=== PATIENT | male | born 1955 | race Caucasian/White ===

== ENCOUNTER → 2017-02-10 | Outpatient (CLI) | payer OTHER | LOC: FIMAGING 15:29 | PROVIDERS: ATTEND Nurse Practitioner Adult Health | DX: S82.102K Unspecified fracture of upper end of left tibia, subsequent encounter for closed fracture with nonunion (principal); M17.12 Unilateral primary osteoarthritis, left knee ==

== ENCOUNTER 2017-09-03 13:18 | Emergency (ER) | payer OTHER ==
--- NOTE | 2017-09-03 14:01 | EDPHY ---
H & P Time Seen by Provider: 09/03/17 13:59 HPI/ROS: CHIEF COMPLAINT: Left wrist injury HISTORY OF PRESENT ILLNESS: 61-year-old [id number] male sustained accidental fall on outstretched left hand when he was hiking this morning. No paresthesia. No head injury. No proximal pain or injury. PHYSICAL EXAM (Prior to examination, patient consented to physical exam, hands were washed and my usual and customary physical exam procedures followed) 1) GENERAL: Well-developed, well-nourished, alert and oriented. Appears to be in no acute distress. 2) HEAD: Normocephalic 3) HEENT: Pupils equal, round, reactive to light bilaterally. 4) LUNGS: Breathing comfortably. 5) MUSCULOSKELETAL: Dorsal deformity noted. Intact skin Soft compartments. Normal coloration. 6) SKIN: Intact no tenting normal coloration 7) VASCULAR: pulses and cap refill present are brisk 8) NEUROLOGIC: Radial, ulnar, median nerve function intact with no deficits appreciated on exam DIFFERENTIAL DIAGNOSIS: in no particular order including but not limited to fracture, sprain, compartment syndrome Procedure: Fracture reduction Indication: Fracture of the distal radius Indications, risks and benefits discussed with patient and consent obtained. A hematoma block of 0.5% bupivicaine placed by myself. Traction and countertraction applied achieving a visible and palpable reduction. The area was splinted with a sugar-tong Orthoglass splint. After application of the splint I returned and re-examined the patient. The splint was adequately immobilizing the joint and distal to the splint the patient's circulation and sensation were intact. Patient shows no signs of compartment syndrome. Was given orthopedic precautions. Constitutional: Initial Vital Signs Temperature (C) 36.8 C 09/03/17 14:11 Heart Rate 74 09/03/17 14:11 Respiratory Rate 16 09/03/17 14:11 Blood Pressure 141/87 H 09/03/17 14:11 O2 Sat (%) 96 09/03/17 14:11 O2 Delivery Mode Room Air Allergies/Adverse Reactions: No Known Allergies Allergy (Unverified 07/07/13 21:15) Home Medications: Medication Instructions Recorded Diltiazem 09/03/17 Hydrocodone/APAP 5/325 [[place] 1 tab PO Q6 PRN #7 tab 09/03/17 5/325 (RX)] MDM/Departure - MDM Imaging Results: Imaging Impressions Wrist X-Ray 09/03/17 13:43 Impression: 1. Dorsally angulated Colles' fracture. 2. Equivocal unicortical navicular fracture. If confirmation is important, then consider noncontrast CT. Wrist X-Ray 09/03/17 14:34 Impression: Incomplete reduction of the dorsally angulated comminuted distal radial fracture. Images reviewed by myself ED Course/Re-evaluation: Re-evaluation with serial exams. He is neurovascularly intact. Stressed the importance of follow-up with orthopedics and provided him this follow-up information. No evidence of compartment syndrome. Discharged with analgesia, usual and customary orthopedic precautions and instructions. Care of patient under supervision of primary supervising physician Dr Damico with whom I discussed care. - Depart Disposition: Home, Routine, Self-Care Clinical Impression: Distal radius fracture, left Qualifiers: Encounter type: initial encounter Fracture type: closed Fracture morphology: Colles' Qualified Code(s): S52.532A - Colles' fracture of left radius, initial encounter for closed fracture Condition: Good Instructions: Wrist Fracture in Adults (ED) Additional Instructions: Return to the ER immediately if you experience discoloration, have worsening pain, numbness, tingling, or any other symptoms that concern you. If you received x-rays in the emergency department today, be advised, that ligamentous , tendon, muscular, and other non-bony injury cannot be fully ruled out. Try to keep your affected extremity elevated above the level of your chest, and keep cold packs on the affected area, for the next 48 hours. Prescriptions: Hydrocodone/APAP 5/325 [[place] 5/325 (RX)] 1 tab PO Q6 PRN #7 tab PRN Reason: Pain, Severe Referrals: Luis Richardson MD [Medical Doctor] - 2-3 days, call for appt.
[2017-09-03 14:12] VITALS: RESP 16; TEMP 98.2
[2017-09-03 15:40] VITALS: BP 129/72; PULSE 73; O2SAT 94
== END 2017-09-03 15:38 | disposition home or self-care (01) ==
PROC: 0PSJXZZ Reposition Left Radius, External Approach (ICD-10-PCS; principal; 2017-09-03)
DX: S52.532A Colles' fracture of left radius, initial encounter for closed fracture (principal); W18.39XA Other fall on same level, initial encounter; Y99.8 Other external cause status; Y93.01 Activity, walking, marching and hiking

== ENCOUNTER 2017-09-13 05:20 | Day surgery (SDC) | payer OTHER ==
[2017-09-13 06:18] VITALS: PULSE 61
[2017-09-13] MEDS ORDERED: LR 1,000 ML IV ONE (06:19)
[2017-09-13] MEDS ORDERED: ceFAZolin 2 GM/SWFI 2 GM/20 ML SYR IVP ONE (06:46)
--- NOTE | 2017-09-13 06:47 | PDHPUP ---
History & Physical Update H&P update statement: This history and physical update is based on an assessment of the patient which was completed after admission or registration (within 24 hours), but prior to the surgery/procedure. RRR CTAB
[2017-09-13] MEDS ORDERED: LIDOCAINE 1% 300 MG/30 ML SDV ONE ×2 (07:08→07:10)
[2017-09-13] MEDS ORDERED: BUPIVACAINE 0.5% 30 ML SDV ONE (07:08)
[2017-09-13] MEDS ORDERED: MIDAZOLAM 2 MG/2 ML VIAL ONE (07:11)
[2017-09-13] MEDS ORDERED: fentaNYL 100 MCG/2 ML INJ ONE ×3 (07:11→09:17)
[2017-09-13] MEDS ORDERED: PROPOFOL/EMULSION 500 MG/50 ML BOTTLE IV ONE (07:11)
[2017-09-13] MEDS ORDERED: LR 500 ML IV PRN (07:43)
[2017-09-13] MEDS ORDERED: DEXAMETHASONE 4 MG/ML VIAL IVP PRN (07:43)
[2017-09-13] MEDS ORDERED: HYDROCODONE/APAP 5/325 TAB PO PRN (07:43)
[2017-09-13] MEDS ORDERED: NALOXONE HCL 0.4 MG/ML INJ IVP PRN (07:43)
[2017-09-13] MEDS ORDERED: METOCLOPRAMIDE 10 MG/2 ML VIAL IVP PRN (07:43)
[2017-09-13] MEDS ORDERED: ONDANSETRON 4 MG/2 ML VIAL IVP PRN (07:43)
[2017-09-13] MEDS ORDERED: PROMETHAZINE HCL 25 MG/ML INJ IVP PRN (07:43)
[2017-09-13] MEDS ORDERED: ACETAMINOPHEN 500 MG TAB PO PRN (07:43)
[2017-09-13] MEDS ORDERED: OXYCODONE/APAP 5/325 TAB PO PRN (07:43)
[2017-09-13] MEDS ORDERED: ALBUTEROL 3 ML DEYVIAL IH PRN (07:43)
--- NOTE | 2017-09-13 07:43 | PDANEPAE ---
ANE Past Medical History - Cardiovascular History Hx Hypertension: No Hx Arrhythmias: Yes Cardiovascular History Comment: HX OF PAC'S NO RX USEAGE FOR OVER 2 YEARS - Pulmonary History Hx COPD: No Hx Asthma/Reactive Airway Disease: No Hx Recent Upper Respiratory Infection: No Hx Oxygen in Use at Home: No Hx Sleep Apnea: No Sleep Apnea Screening Result - Last Documented: Negative - Neurologic History Hx Cerebrovascular Accident: No Hx Seizures: No Hx Dementia: No - Endocrine History Hx Diabetes: No - Renal History Hx Renal Disorders: No - Liver History Hx Hepatic Disorders: No - Neurological & Psychiatric Hx Hx Neurological and Psychiatric Disorders: Yes Neurological / Psychiatric History Comment: left foot - Cancer History Hx Cancer: No - Congenital Disorder History Hx Congenital Disorders: No - GI History Hx Gastrointestinal Disorders: Yes Gastrointestinal History Comment: collitis - Other Health History Other Health History: HAS DROP FOOT ON LEFT - Chronic Pain History Chronic Pain: No - Surgical History Prior Surgeries: 07/24/13 REMVL LT LEG EXTERNAL FIXATOR. 07/07/13 LT LEG EXTERNAL FIXATOR. ORIF LT RING FINGER. REMVL HARDWARE LT RING FINGER. RT THUMB ANE Review of Systems Review of Systems: - Exercise capacity METS (RN): 6 METS ANE Patient History - Allergies Allergies/Adverse Reactions: No Known Allergies Allergy (Unverified 07/07/13 21:15) - Home Medications Home Medications: Diltiazem 09/03/17 [Last Taken 09/12/17 18:00] - NPO status NPO Since - Liquids (Date): 09/12/17 NPO Since - Liquids (Time): 18:30 NPO Since - Solids (Date): 09/12/17 NPO Since - Solids (Time): 18:30 - Smoking Hx Smoking Status: Never smoked - Family Anes Hx Family Hx Anesthesia Complications: none ANE Labs/Vital Signs - Vital Signs Blood Pressure: 113/66 Heart Rate: 61 Respiratory Rate: 18 O2 Sat (%): 95 Height: 182.88 cm Weight: 86.183 kg ANE Physical Exam - Airway Neck exam: FROM Mallampati Score: Class 2 Mouth exam: small mouth opening - Pulmonary Pulmonary: no respiratory distress, no rales or rhonchi, clear to auscultation - Cardiovascular Cardiovascular: regular rate and rhythym, no murmur, rub, or gallop (TMJ problems with limited mouth opening) ANE Anesthesia Plan Anesthesia Plan: GA w LMA
[2017-09-13] MEDS ORDERED: PROPOFOL 200 MG/20 ML VIAL ONE (07:52)
[2017-09-13] MEDS ORDERED: LIDOCAINE 2% 5 ML SDV ONE (07:58)
[2017-09-13] MEDS ORDERED: RANITIDINE 50 MG/2 ML VIAL ONE ×2 (07:58→07:59)
[2017-09-13] MEDS ORDERED: ONDANSETRON 4 MG/2 ML VIAL ONE (07:58)
[2017-09-13] MEDS ORDERED: METOCLOPRAMIDE 10 MG/2 ML VIAL ONE ×2 (07:58→07:59)
[2017-09-13] MEDS ORDERED: DEXAMETHASONE 4 MG/ML VIAL ONE (07:58)
[2017-09-13] MEDS ORDERED: KETOROLAC 30 MG/1 ML SDV ONE (07:58)
--- NOTE | 2017-09-13 08:53 | POSTOPPROG ---
Post Op Note Date of Operation: 09/13/17 Surgeon: Braulio Beauchamp Sightseeing Guide: Alessia Lovett PA-C Anesthesia: GET(General Endotracheal) Pre-op Diagnosis: left distal radius fracture Post-op Diagnosis: left distal radius fracture Procedure: ORIF left distal radius fracture Inf/Abcess present in the surg proc area at time of surgery?: No Depth: Deep Incisional (Fascial) EBL: Minimal
[2017-09-13] MEDS: fentaNYL 100 MCG/2 ML INJ IVP PRN ×3 (08:58→09:19)
[2017-09-13] MEDS ORDERED: HYDROCODONE/APAP 5/325 TAB ONE (10:01)
[2017-09-13 10:21] VITALS: RESP 12
[2017-09-13 11:17] VITALS: BP 130/80; TEMP 97.3; O2SAT 93
--- NOTE | 2017-09-13 20:35 | POSTANESTH ---
Post Anesthetic Evaluation Cardiovascular Status: Normal, Stable, Similar to Pre-Op Cond Respiratory Status: Normal, Stable, Similar to Pre-op Cond. Level of Consciousness/Mental Status: Can Participate in Eval Pain Control: Adequate, Prn Tx Ordered Nausea/Vomiting Control: Adequate, Prn Tx Ordered Complications Possibly Related to Anesthesia: None Noted
--- NOTE | 2017-09-14 02:52 | GOP ---
[f rep st] OPERATIVE REPORT DATE OF OPERATION: 09/13/2017 SURGEON: Braulio Beauchamp MD DIAGNOSTIC TECHNOLOGIST: Alessia Lovett PA-C PREOPERATIVE DIAGNOSIS: Left distal radius fracture. POSTOPERATIVE DIAGNOSIS: Left distal radius fracture. PROCEDURE PERFORMED: Left distal radius open reduction and internal fixation. FINDINGS: ESTIMATED BLOOD LOSS: 1 cc. DESCRIPTION OF PROCEDURE: This is a very pleasant 61-year-old male, who underwent a left distal radi us open reduction and internal fixation. COMPLICATIONS: None. IMPLANTS: Synthes 2.4 mm 2.7 mm volar variable locking plate, 3-hole shaft wide. TOURNIQUET TIME: 65 minutes at 250 mmHg. /[id number]/MODL
== END 2017-09-13 11:05 | disposition home or self-care (01) ==
LOC: FSGY 05:20
PROVIDERS: ATTEND Orthopaedic Surgery Hand Surgery
PROC: 0PSJ04Z Reposition Left Radius with Internal Fixation Device, Open Approach (ICD-10-PCS; principal; 2017-09-13 07:15)
DX: S52.502A Unspecified fracture of the lower end of left radius, initial encounter for closed fracture (principal); W00.9XXA Unspecified fall due to ice and snow, initial encounter; Y93.01 Activity, walking, marching and hiking
CPT/HCPCS: C1713; J0690; J1100; J1885; J2250; J2405; J2704; J2765; J2780; J3010

== ENCOUNTER 2018-03-06 06:57 | Observation (INO) | payer OTHER ==
[2018-03-06] MEDS ORDERED: NS 1,000 ML IV ONE (07:00)
--- NOTE | 2018-03-06 07:13 | CPEKG ---
Heart Rate: 75 RR Interval: 800 P-R Interval: 168 QRSD Interval: 100 QT Interval: 428 QTC Interval: 479 P [place]: 58 QRS [place]: -3 T Wave [place]: 50 EKG Severity - BORDERLINE ECG - EKG Impression: SINUS RHYTHM EKG Impression: VENTRICULAR PREMATURE COMPLEX Electronically Signed By: Uziel Guevara 06-Mar-2018 07:47:02
[2018-03-06 07:33] LABS: PLATELET COUNT 226 10^3/uL (150-400)
[2018-03-06 07:40] LABS: INR 0.95 (0.83-1.16); PROTIME(PATIENT) 12.9 SEC (12.0-15.0)
[2018-03-06] MEDS ORDERED: LIDOCAINE 1% 300 MG/30 ML SDV ONE ×2 (08:18→10:58)
[2018-03-06] MEDS ORDERED: HEPARIN 10,000 UNIT/10 ML MDV (1,000 UNIT/ML) ONE (08:18)
[2018-03-06] MEDS ORDERED: BUPIVACAINE 0.75% 10 ML SDV ONE (08:19)
[2018-03-06] MEDS ORDERED: ISOPROTERENOL HCL/D5W 0.2 MG/50 ML BAG IV ONE (08:19)
--- NOTE | 2018-03-06 08:38 | PDGENHP ---
History & Physical Chief Complaint: symptomatic PVC History of Present Illness: symptomatic pvc Relevant Physical Exam: s1s2 irreg cta ao3 Cardiorespiratory Assessment: PVC, outflow tract. For EPS and ablation
--- NOTE | 2018-03-06 08:38 | PDPROPOC ---
Sedation Plan of Care Sedation Plan of Care: vital signs stable, mental status noted, patient educated of risks, benefits, alternatives, patient can tolerate sedation ASA Classification: ASA 1 Planned drugs: fentanyl, midazolam Mallampati Score: Class 1 Mallampati Reference Image: Patient passed 3-3-2 rule?: Yes
[2018-03-06] MEDS ORDERED: PHENYLEPHRINE HCL 100 MCG/ML SYR ONE (09:40)
--- NOTE | 2018-03-06 11:35 | EPPROC ---
Electrophysiology Procedure Note: ELECTROPHYSIOLOGIC STUDY AND CATHETER MEDIATED ABLATION OF PREMATURE VENTRICULAR BEATS ORIGINATING IN THE RIGHT VENTRICULAR OUTFLOW TRACT: Procedures performed: 07903-76 EP evaluation with RA/RV/LA pace/record, with arrhythmia induction 25147-61 EP evaluation with RA/RV pace record, insert/reposition catheter, with arrhythmia induction 05840 Intracardiac catheter ablation, VT arrhythmogenic focus Fluoroscopy INDICATION: Recurrent PVC, not controlled with BB or CCB The patient arrived in the Electrophysiology Laboratory in the fasting state. The right clavicular region, right groin, and left groin area were prepped and draped in the usual sterile manner. Appropriate non-invasive blood pressure, pulse oximetry and end-tidal CO2 monitoring was established. Procedure was done with patient fully awake. All catheters were placed percutaneously using the modified Seldinger technique , and advanced into position under fluoroscopic guidance. One #7 Upper Sorbian deflectable octapolar electrode catheter was advanced to the His-bundle position via the left femoral vein . One #7 Upper Sor[place] deflectable catheter with 10 pairs of electrodes was placed via the right femoral vein into the distal coronary sinus AIV junction. Programmed stimulation was performed from the right atrium, right ventricle and CS (left atrium). Parahisian pacing demonstrated all retrograde conduction over the AV node. The patient arrived to the electrophysiology laboratory in normal sinus rhythm with frequent PVC. PVC morphology LBBB inferior axis with QRS transition at V4. A 4 mm Navistar ablation catheter with a magnetic sensor for the Carto 3D electroanatomic mapping system was used for mapping. Mapping (during PVC) of the right ventricular outflow tract and anterior interventricular vein identified earliest ventricular activation at the anterior base of the RVOT, leftward of midline. Ventricular activation began 32 ms before the onset of the QRS complex with sharp negative deflection in the unipolar electrode. RF application at this site rendered PVC non inducible. Post ablation, accelerated idioventricular rhythm, nonsustained, was seen on 1 occasion. Morphology was different than PVC, QRS transition in V3. Observation for 45 minutes after the application of radiofrequency current was performed during at baseline and with phenylephrine boluses. No spontaneous ventricular extra systoles of the primary pattern seen prior to ablation were induced spontaneously or with ventricular burst pacing. The catheters were removed. Sheaths were removed in the EP lab after applying subcutaneous purse string suture. The patient was transferred to the cardiovascular holding area in stable condition. There were no apparent complications. CONCLUSIONS: 1. Premature ventricular beats originating from base of RV outflow tract, anterior aspect, leftward of midline. 2. Successful catheter mediated ablation of the premature ventricular beats. 3. No apparent complications. Patient Problems: Problems Problem Status Onset PVC (premature ventricular contraction) Acute Tibia upper end fracture Acute
--- NOTE | 2018-03-06 12:45 | CPEKG ---
Heart Rate: 65 RR Interval: 923 P-R Interval: 176 QRSD Interval: 102 QT Interval: 444 QTC Interval: 462 P [place]: 42 QRS [place]: 5 T Wave [place]: 44 EKG Severity - NORMAL ECG - EKG Impression: SINUS RHYTHM Electronically Signed By: Jeremiah Rodríguez 08-Mar-2018 07:26:46
[2018-03-07 04:00] LABS: PLATELET COUNT 201 10^3/uL (150-400)
[2018-03-07] MEDS ORDERED: ASPIRIN 81 MG CHEWABLE TAB PO SCH (09:00)
--- NOTE | 2018-03-07 09:07 | CPEKG ---
Heart Rate: 69 RR Interval: 870 P-R Interval: 164 QRSD Interval: 96 QT Interval: 400 QTC Interval: 429 P [place]: 50 QRS [place]: 26 T Wave [place]: 41 EKG Severity - NORMAL ECG - EKG Impression: SINUS RHYTHM EKG Impression: INCOMPLETE RIGHT BUNDLE BRANCH BLOCK Electronically Signed By: Jeremiah Salcedo 09-Mar-2018 08:15:55
[2018-03-07 09:13] VITALS: BP 135/80
--- NOTE | 2018-03-07 09:25 | ECHO ---
[email or web address] [address] [address] Main: [phone] Fax: Transthoracic Echocardiogram Name: KUN NAVARRO MR#: [id number] Study Date: 03/07/2018 Study Time: 07:49 AM Date of : 1955 Age: 62 year(s) Height: 182.9 cm (72 in.) Weight: 86.18 kg (190 lb.) BSA: 2.08 m2 Gender: Male Examination: Echo Indication: F/U post EP study Image Quality: Contrast: Requested by: Uziel Guevara BP: 124 mmHg/77 mmHg Heart Rate: Rhythm: Indication: F/U post EP study Procedure Staff Machine Sewer: Charmaine Maurer RDCS Reading Physician: Akbar Lubin MD Requesting Provider: Conclusions: Normal study Measurements: Chambers Valvular Assessment AV/MV Valvular Assessment TV/PV Normal Normal Normal Name Value Range Name Value Range Name Value Range Ao Anuja (MM): 3.4 cm (2.2 cm-3.7 AV Vmax: 1.51 m/s (1 m/s-1.7 cm) m/s) IVSd (2D): 0.8 cm (0.6 cm-1.1 AV meanP mmHg ( - ) cm) MV E Vmax: 0.62 m/s ( - ) LVDd (2D): 4.9 cm (4.2 cm-5.9 MV A Vmax: 0.54 m/s ( - ) cm) MV E/A: 1.15 ( - ) LVDs (2D): 3.0 cm (2.1 cm-4 cm) LVPWd (2D): 0.9 cm (0.6 cm-1 cm) LVEF (MOD4): 72 % (>=55 %) EF Range: 65-70 % Continued Measurements: Chambers Valvular Assessment AV/MV Name Value Name Value LADs: 3.9 cm MV E' Septal: 0.08 m/s LADs Lon.4 cm MV E/E' Septal: 7.30 LA Area: 19.3 cm2 MV E/E' Lateral: 5.40 Additional Vessels Patient: KUN NAVARRO Study Date: 03/07/2018 Page 1 of 2 07:49 AM Name Value Ao Ascendin.7 cm Findings: Left Ventricle: Normal size left ventricle. No LV hypertrophy. Normal global systolic LV function. The ejection fraction is estimated to be 65-70 %. No regional wall motion abnormality. Normal diastolic LV function. Right Ventricle: Normal size right ventricle. Left Atrium: The left atrium is normal in size. Right Atrium: The right atrium is normal in size. Mitral Valve: The mitral valve is normal in appearance and function. Aortic Valve: The aortic valve is normal in appearance and function. The aortic valve is tri-leaflet. Tricuspid Valve: The tricuspid valve is normal in appearance and function. Trivial tricuspid valve regurgitation. Pulmonic Valve: The pulmonic valve is normal in appearance and function. Aorta: The aorta is normal. Pericardium: No pericardial effusion. (No Signature Object) Patient: KUN NAVARRO Study Date: 03/07/2018 Page 2 of 2 07:49 AM [id number]
--- NOTE | 2018-03-07 12:34 | GDS ---
[f rep st] DISCHARGE SUMMARY DISCHARGE DIAGNOSIS: Frequent and symptomatic premature ventricular contractions status post prematu re ventricular contraction ablation in this admission. PROCEDURES: 1. 03/06/2018, EP study with ablation for premature ventricular beats originating from the RV outflo w tract in the anterior aspect and leftward of midline, status post successful catheter-mediated abla tion. 2. 03/07/2018, echocardiogram which shows normal study. CONSULTATIONS: Uziel Guevara MD BRIEF HISTORY: Please see dictated H and P by Dr. Guevara for complete detail. In brief, the patient is a 62-year-old male with a longstanding history of PVCs that had been worsening over the last year an d impacting his quality of life. His Holter has shown 10,000 PVCs in a monomorphic pattern on a 24-h our Holter monitor. He has been tried on metoprolol and diltiazem with ADRs to these medications. G iven ongoing symptomatology, he was brought in for EP study with eye toward ablation. This was done on 03/06/2018. On day of discharge, the patient denies any palpitations or groin discomfort. PHYSICAL EXAMINATION: VITAL SIGNS: On day of discharge, blood pressure 135/80, heart rate 73, respi rations 16, O2 saturation 96% on room air, temp of 98.8 degrees Fahrenheit. GENERAL: He is a very p leasant male in no apparent distress. EYES: PERRL. HEART: Regular rate and rhythm. LUNGS: Clear . EXTREMITIES: He has 2+ PT and DP pulses bilaterally. LABORATORY DATA: CBC with WBC 6.04, hemoglobin 13.5, hematocrit 39.6, platelet count of 201. BMP wi th sodium 142, potassium 4, chloride 109, CO2 of 24, BUN 10, creatinine 0.7, glucose 92. Troponin 0. 215 consistent with recent ablation. A 12-lead ECG on day of discharge shows sinus rhythm. RESULTS PENDING: None. DIET: Per previous. ACTIVITY: Groin precautions reviewed. DISCHARGE MEDICATIONS: See med reconciliation for complete details. In brief, he has been started o n aspirin 81 mg p.o. daily. He may continue his home ascorbic acid, vitamin B complex. His metoprol ol has been stopped. DISCHARGE INSTRUCTIONS: 1. Groin precautions. 2. Follow up with Dr. Guevara in 1 month's time. /[id number]/MODL
== END 2018-03-07 10:32 | disposition home or self-care (01) ==
LOC: FCATH 06:57 → F2W 11:11
PROVIDERS: ADMIT Internal Medicine Cardiovascular Disease; ATTEND Internal Medicine Cardiovascular Disease
PROC: 4A023FZ Measurement of Cardiac Rhythm, Percutaneous Approach (ICD-10-PCS; principal; 2018-03-06)
PROC: 02583ZZ Destruction of Conduction Mechanism, Percutaneous Approach (ICD-10-PCS; principal; 2018-03-06)
PROC: 5A1213Z Performance of Cardiac Pacing, Intermittent (ICD-10-PCS; principal; 2018-03-06)
DX: I49.3 Ventricular premature depolarization (principal)
CPT/HCPCS: 93005; 93306; 93621; 93623; 93654; C1732; G0378; C1731; J1644; J2370